=== PATIENT | female | born 1955 | race Caucasian/White ===

== ENCOUNTER 2018-03-07 11:45 | Emergency (ER) | payer OTHER ==
[2018-03-07 12:01] VITALS: TEMP 97.1
--- NOTE | 2018-03-07 12:35 | RAD ---
EXAM DESCRIPTION: Shoulder,Right 2 or More Views CLINICAL HISTORY: right shoulder pain after fall COMPARISON: None FINDINGS: Two x-ray views of the right shoulder were submitted. There are mild degenerative changes at the acromioclavicular joint. There is no acute fracture or dislocation. Bone mineralization is within normal limits. There is no radiopaque foreign body material. IMPRESSION: No acute fracture or dislocation. Electronically signed by: Babatunde Nagy MD 03/07/2018 12:34 PM CDT
[2018-03-07 13:54] VITALS: O2SAT 100
--- NOTE | 2018-03-07 14:13 | ED.PDOC ---
History of Present Illness - General Chief Complaint: Upper Extremity Injury Stated Complaint: shoulder pain Time Seen by Provider: 03/07/18 12:05 Source: patient Exam Limitations: no limitations - History of Present Illness Initial Comments: the patient is a 62-year-old female but tripped and fell this morning landing on her right arm. She had immediate pain in her right shoulder and a sharp pain down the right arm. Immediately after she became pale and diaphoretic and passed out for approximately 10 or 15 seconds. After that she has been normal. No issues with passing out prior. No palpitations. No chest pain. No shortness of breath. The pain in the right arm is improving but is mainly localizing to the right shoulder at this point in time. No palpable or visual deformity. She does appear to be neurologically served at this time. She is vascularly preserved. No other evidence of any obvious injury. No head trauma. No focal neurological changes otherwise. Strength and range of motion are preserved around the wrist and elbow. She does have some pain with active abduction at the shoulder. Timing/Duration: momentarily Severity: moderate Improving Factors: nothing Worsening Factors: nothing Associated Symptoms: denies symptoms Allergies/Adverse Reactions: Allergies Codeine Allergy (Verified 03/07/18 11:58) Home Medications: Ambulatory Orders Levothyroxine Sodium [Synthroid] 0.075 mg PO DAILY 03/07/18 Lisinopril 20 mg PO DAILY 03/07/18 Review of Systems - Review of Systems Constitutional: States: no symptoms reported EENTM: States: no symptoms reported Respiratory: States: no symptoms reported Cardiology: States: syncope Gastrointestinal/Abdominal: States: no symptoms reported Genitourinary: States: no symptoms reported Musculoskeletal: States: see HPI Skin: States: no symptoms reported Neurological: States: see HPI Endocrine: States: no symptoms reported All other Systems: No Change from Baseline Past Medical History (General) - Patient Medical History Hx Stroke: No Hx Congestive Heart Failure: No Hx Hypertension: Yes Hx Diabetes: No Hx Cancer: Yes - Breast - Vaccination History Hx Influenza Vaccination: Yes Hx Pneumococcal Vaccination: No - Social History Hx Tobacco Use: No Family Medical History - Family History Mother Family History: Unknown Living Status: Unknown Physical Exam - Physical Exam General Appearance: Alert, Comfortable, No apparent distress Eye Exam: bilateral normal Ears, Nose, Throat: hearing grossly normal, normal ENT inspection Neck: full range of motion, supple Respiratory: lungs clear, normal breath sounds, no respiratory distress, no accessory muscle use Cardiovascular/Chest: normal peripheral pulses, regular rate, rhythm, no edema Peripheral Pulses: radial,right: 2+, radial,left: 2+, dorsalis pedis,right: 2+, dorsalis pedis,left: 2+ Gastrointestinal/Abdominal: non tender, soft Rectal Exam: deferred Back Exam: normal inspection, no CVA tenderness Extremity: no pedal edema, no calf tenderness, normal capillary refill, other - see history of present illness 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 Progress - Progress Progress: 03/07/18 14:14 the patient is a 62-year-old female that fell and injured her right shoulder. It is possible she may have had a transient dislocation relocation. She does likely have a mild rotator cuff injury on the right clinically. She' ll be placed in a right sided sling and can start doing range of motion exercises in a couple of days. Motrin can be used for discomfort. It appears she had a syncopal episode related to the fall which is most likely vasovagal related to the pain. Due to this fact the patient was monitored for several hours on telemetry monitoring. There was no evidence of any recurrence and no evidence of any arrhythmia. Tilt vital signs are negative. If the patient continues to have any significant pain in the shoulder after approximately a 2 week period then formal orthopedics evaluation of the right sided rotator cuff may be warranted. additionally if she has any further syncopal episodes not related to pain then additional workup may be warranted. ER warnings were given otherwise. Topical heat may prove beneficial symptomatically. X-ray of the right shoulder shows no current dislocation or fracture. - Results/Orders Results/Orders: telemetry shows normal sinus rhythm. Patient was monitored for almost 2 hours. Departure - Departure Clinical Impression: Vasovagal syncope Strain of tendon of right rotator cuff Qualifiers: Encounter type: initial encounter Qualified Code(s): S46.011A - Strain of muscle(s) and tendon(s) of the rotator cuff of right shoulder, initial encounter Disposition: Discharge to Home or Self Care Condition: Fair Departure Forms: ED Discharge - Pt. Copy, Patient Portal Self Enrollment Diet: regular diet Activity: increase activity as tolerated Referrals: Gene Escamilla III, MD [Primary Care Provider] - 1-2 Weeks Home Medications: Ambulatory Orders Levothyroxine Sodium [Synthroid] 0.075 mg PO DAILY 03/07/18 Lisinopril 20 mg PO DAILY 03/07/18 Additional Instructions: the patient is a 62-year-old female that fell and injured her right shoulder. It is possible she may have had a transient dislocation relocation. She does likely have a mild rotator cuff injury on the right clinically. She' ll be placed in a right sided sling and can start doing range of motion exercises in a couple of days. Motrin can be used for discomfort. It appears she had a syncopal episode related to the fall which is most likely vasovagal related to the pain. Due to this fact the patient was monitored for several hours on telemetry monitoring. There was no evidence of any recurrence and no evidence of any arrhythmia. Tilt vital signs are negative. If the patient continues to have any significant pain in the shoulder after approximately a 2 week period then formal orthopedics evaluation of the right sided rotator cuff may be warranted. additionally if she has any further syncopal episodes not related to pain then additional workup may be warranted. ER warnings were given otherwise. Topical heat may prove beneficial symptomatically. X-ray of the right shoulder shows no current dislocation or fracture.
[2018-03-07 14:32] VITALS: BP 140/85
== END 2018-03-07 14:27 | disposition home or self-care (01) ==
LOC: ER 11:45
DX: S46.011A Strain of muscle(s) and tendon(s) of the rotator cuff of right shoulder, initial encounter (principal); R55 Syncope and collapse; I10 Essential (primary) hypertension; Z79.899 Other long term (current) drug therapy; Z88.5 Allergy status to narcotic agent; Z85.3 Personal history of malignant neoplasm of breast; W01.0XXA Fall on same level from slipping, tripping and stumbling without subsequent striking against object, initial encounter; Y92.9 Unspecified place or not applicable

== ENCOUNTER → 2020-07-21 | Outpatient (CLI) | payer OTHER | LOC: GMALS 10:21 | PROVIDERS: ATTEND Nurse Practitioner Acute Care | DX: N95.9 Unspecified menopausal and perimenopausal disorder (principal); I10 Essential (primary) hypertension; E03.9 Hypothyroidism, unspecified; R73.09 Other abnormal glucose; E55.9 Vitamin D deficiency, unspecified ==